=== PATIENT | female | born 1985 | race Caucasian/White ===

== ENCOUNTER 2017-08-22 16:36 | Emergency (ER) | payer MEDICAID | END 2017-08-22 18:48 | disposition home or self-care (01) | LOC: FTE 16:36 | DX: R00.0 Tachycardia, unspecified (principal) | CPT/HCPCS: 93005; 99283-25 ==

== ENCOUNTER 2017-08-24 15:20 | Emergency (ER) | payer MEDICAID | END 2017-08-24 16:45 | disposition left against medical advice (07) | LOC: FTE 15:20 | DX: R00.2 Palpitations (principal) | CPT/HCPCS: 93005; 99282 ==